=== PATIENT | male | born 1940 | race Caucasian/White ===

== ENCOUNTER 2021-02-02 10:36 | Emergency (ER) | payer MEDICARE | END 2021-02-04 12:50 | disposition left against medical advice (07) | LOC: ER 10:36 | DX: Z53.21 Procedure and treatment not carried out due to patient leaving prior to being seen by health care provider (principal) ==

== ENCOUNTER → 2021-02-03 | Outpatient (CLI) | payer MEDICARE | END | disposition home or self-care (01) | LOC: LAB 15:30 → LAB SHORT 15:30 | DX: L97.509 Non-pressure chronic ulcer of other part of unspecified foot with unspecified severity (principal) | CPT/HCPCS: 87070; 87075; 87077; 87186; 87205 ==

== ENCOUNTER → 2021-02-16 | Outpatient (CLI) | payer MEDICARE | END | disposition home or self-care (01) | LOC: LAB 11:40 → LAB SHORT 11:40 | DX: M86.9 Osteomyelitis, unspecified (principal) | CPT/HCPCS: 87070; 87075; 87205 ==

== ENCOUNTER → 2021-02-16 | Outpatient (CLI) | payer MEDICARE | END | disposition home or self-care (01) | LOC: LAB 13:22 → LAB SHORT 13:22 | DX: M86.172 Other acute osteomyelitis, left ankle and foot (principal); L03.032 Cellulitis of left toe; L98.499 Non-pressure chronic ulcer of skin of other sites with unspecified severity | CPT/HCPCS: 88305 ==

== ENCOUNTER → 2021-04-02 | Outpatient (CLI) | payer MEDICARE | END | disposition home or self-care (01) | LOC: LAB SHORT 13:02 | DX: Z48.89 Encounter for other specified surgical aftercare (principal); T81.31XD Disruption of external operation (surgical) wound, not elsewhere classified, subsequent encounter; E11.621 Type 2 diabetes mellitus with foot ulcer; L97.509 Non-pressure chronic ulcer of other part of unspecified foot with unspecified severity; R20.0 Anesthesia of skin | CPT/HCPCS: 87070; 87075; 87077; 87186; 87205 ==

== ENCOUNTER → 2021-04-24 | Outpatient (CLI) | payer MEDICARE | END | disposition home or self-care (01) | LOC: LAB SHORT 10:01 | DX: Z48.89 Encounter for other specified surgical aftercare (principal) | CPT/HCPCS: 87070; 87075; 87077; 87186 ==

== ENCOUNTER 2021-05-04 09:40 | Emergency (ER) | payer MEDICARE ==
[~2021-05-04] VITALS: Ht 193 cm; Wt 87.6 kg
[2021-05-04 10:29] LABS: BASOPHILS ABSOLUTE AUTO 0.11 K/mm3 (0.00-0.23); BASOPHILS PERCENT AUTO 1 % (0-2); EOSINOPHILS ABSOLUTE AUTO 0.11 K/mm3 (0.00-0.68); EOSINOPHILS PERCENT AUTO 1 % (0-6); Hematocrit 40.4 % (37.0-53.0); Hemoglobin 12.6 g/dL (13.5-17.5); IMMATURE GRAN ABSOLUTE AUTO 0.04 K/mm3 (0.00-0.10); IMMATURE GRAN PERCENT AUTO 0 % (0-1); LYMPHOCYTES PERCENT AUTO 10 % (21-46); MONOCYTES ABSOLUTE AUTO 1.08 K/mm3 (0.16-1.47); MONOCYTES PERCENT AUTO 10 % (4-13); Mean Corpuscular HGB 27.2 pg (26.0-34.0); Mean Corpuscular HGB Conc 31.2 g/dL (31.5-36.5); Mean Corpuscular Volume 87 fL (80-100); Mean Platelet Volume 10.5 fL (9.1-12.4); NEUTROPHILS ABSOLUTE AUTO 8.93 K/mm3 (1.96-9.15); NEUTROPHILS PERCENT AUTO 78 % (41-73); Platelet Count 308 K/mm3 (150-400); RDW Coefficient Variation 14.7 % (11.7-14.2); RDW Standard Deviation 47.3 fL (35.1-46.3); Red Blood Cell Count 4.64 M/mm3 (4.30-5.90); White Blood Cell Count 11.37 K/mm3 (4.00-11.30)
[2021-05-04 10:54] LABS: Alanine Aminotransfer (ALT/SGP 16 U/L (12-78); Albumin, Blood 2.7 g/dL (3.4-5.0); Albumin/Globulin Ratio 0.6 (0.8-1.8); Alk Phos 103 U/L (50-136); Anion Gap 3 mmol/L (6-16); Aspartate Aminotrans (AST/SGOT 23 U/L (12-37); Bilirubin, Total 0.6 mg/dL (0.1-1.0); Blood Urea Nitrogen 20 mg/dL (8-24); Bun/Creatinine Ratio 26.1 (12.0-20.0); CO2, Blood 30 mmol/L (21-32); Calcium, Blood 9.1 mg/dL (8.5-10.1); Chloride, Blood 105 mmol/L (98-108); Creatinine, Blood 0.77 mg/dL (0.60-1.20); Globulin, Blood 4.4 g/dL (2.2-4.0); Glomerular Filtration Rate >60 (60-); Glucose, Blood 129 mg/dL (70-99); Potassium, Blood 4.3 mmol/L (3.5-5.5); Sodium, Blood 138 mmol/L (136-145); Total Protein, Blood 7.1 g/dL (6.4-8.2)
[2021-05-04] MEDS ORDERED: CIPR250 PO (12:37)
[2021-05-04] MEDS ORDERED: OXYCODONE-ACET1 EAC2 PO (12:38)
[2021-05-04] MEDS ORDERED: VARENICLINE TART1 M1 PO (12:38)
[2021-05-04] MEDS ORDERED: ALENDRONATE SOD PO (12:39)
[2021-05-04] MEDS ORDERED: Ventolin/Prove6.7 GM INH (12:39)
[2021-05-04] MEDS ORDERED: FUROSEMIDE20 MG PO (12:40)
[2021-05-04] MEDS ORDERED: METOPROLOL SUCC25 MG PO (12:41)
[2021-05-04] MEDS ORDERED: Neurontin800 MG PO (12:41)
[2021-05-04] MEDS ORDERED: OMEP20ER PO (12:41)
[2021-05-04] MEDS ORDERED: Celexa20 MG PO (12:42)
[2021-05-04] MEDS ORDERED: Metformin HCl750 MG PO (12:42)
[2021-05-04] MEDS ORDERED: FINA5 PO (12:43)
== END 2021-05-04 15:50 | disposition home or self-care (01) ==
LOC: ER 09:40
PROVIDERS: Physician Assistant
DX: E11.69 Type 2 diabetes mellitus with other specified complication (principal); M86.9 Osteomyelitis, unspecified; I48.91 Unspecified atrial fibrillation
CPT/HCPCS: 36415; 73630; 80053; 85025; 96365; 96375; 99282-25; A9270; J0713; J3370; J7050

== ENCOUNTER → 2021-05-04 | Outpatient (CLI) | payer MEDICARE ==
[~2021-05-04] MED LIST: ALENDRONATE SOD PO; CIPR250 PO; Celexa20 MG PO; FINA5 PO; FUROSEMIDE20 MG PO; METOPROLOL SUCC25 MG PO; Metformin HCl750 MG PO; Neurontin800 MG PO; OMEP20ER PO; OXYCODONE-ACET1 EAC2 PO; VARENICLINE TART1 M1 PO; Ventolin/Prove6.7 GM INH
== END ==
LOC: LAB 09:50 → LAB SHORT 09:50
DX: Z48.817 Encounter for surgical aftercare following surgery on the skin and subcutaneous tissue (principal)
CPT/HCPCS: 88305

== ENCOUNTER 2021-05-05 02:00 | Day surgery (SDC) | payer MEDICARE ==
--- NOTE | 2021-05-05 15:45 | NUR ---
F/U CHEST X-RAY NEEDED: CHEST X-RAY WAS PERFORMED PER PROTOCOL FOR CONFIRMATION OF PICC PLACEMENT IN PT W/ AFIB. PER RADIOLOGIST THE PICC TIP PROJECTED OVER THE INF R ATRIUM. REPORT WAS RECEIVED FROM VINNIE HARO THAT THE RADIOLOGIST HAD READ THE CHEST XRAY AND TO PULL THE CATHETER BACK 3 CM. THERE WAS NO MENTION OF GETTING A REPEAT CHEST XRAY AT THAT TIME. THIS RN PULLED THE CATHETER BACK 3 CM FOR A TOTAL OF 6 CM EXPOSED. PT WAS THEN DC'D HOME. WHEN THE XRAY REPORT WAS AVAILABE, THIS RN NOTICED THAT THE RADIOLOGIST WROTE "SUBSEQUENT IMAGING TO VERIFY PLACEMENT". PT WAS CONTACTED, HE SAID HE WOULD RETURN TO THE HOSPITAL FOR A PREVIOUSLY SCHEDULED APPT, SO HE COULD GET THE X-RAY THEN. THE PT LATER CALLED THIS RN TO SAY THAT HIS FOOT WAS SORE AND THAT HE HAD CANCELLED HIS OTHER APPT SO HE WOULD NOT BE COMING BACK FOR THE X-RAY. PT WAS TOLD THAT IT WAS IMPORTANT TO GET THE XRAY, HE VERBALIZED UNDERSTANDING AND SAID HE WOULD RETURN TOMORROW AM FOR HIS INFUSION AND XRAY AT THAT TIME. THE PICC WAS NOT USED FOR INFUSION BECAUSE HE HAD AN IV WHICH WAS USED.
== END 2021-05-05 10:35 | disposition home or self-care (01) ==
LOC: ATC 02:00
DX: E11.69 Type 2 diabetes mellitus with other specified complication (principal); M86.8X7 Other osteomyelitis, ankle and foot; I10 Essential (primary) hypertension; Z79.899 Other long term (current) drug therapy
CPT/HCPCS: 36569; 71045; 96365; 96366; 96368; C1751; J1580; J3370; J7050

== ENCOUNTER 2021-05-06 02:18 | Day surgery (SDC) | payer MEDICARE ==
[2021-05-06 08:32] LABS: Creatinine, Blood 0.74 mg/dL (0.60-1.20); Glomerular Filtration Rate >60 (60-); Vancomycin, Trough 6.9 ug/mL (5.0-10.0)
[2021-05-06 10:12] LABS: Gentamicin, Trough 1.4 ug/mL (0.0-1.9)
[2021-05-15] MEDS ORDERED: METF500C PO (14:51)
== END 2021-05-06 12:02 | disposition home or self-care (01) ==
LOC: ATC 02:18
PROVIDERS: Internal Medicine
DX: E11.69 Type 2 diabetes mellitus with other specified complication (principal); M86.9 Osteomyelitis, unspecified; I48.91 Unspecified atrial fibrillation
CPT/HCPCS: 71045; 80170; 80202; 82565; 96365; 96366; J3370; J7050

== ENCOUNTER 2021-05-07 08:06 | Day surgery (SDC) | payer MEDICARE ==
[2021-05-07 10:05] LABS: Gentamicin, Trough 0.2 ug/mL (0.0-1.9)
== END 2021-05-07 11:13 | disposition home or self-care (01) ==
LOC: ATC 08:06
PROVIDERS: Internal Medicine
DX: E11.69 Type 2 diabetes mellitus with other specified complication (principal); M86.9 Osteomyelitis, unspecified; I48.91 Unspecified atrial fibrillation
CPT/HCPCS: 80170; 96365; 96366; 96367; J1580; J3370; J7050

== ENCOUNTER 2021-05-08 05:46 | Day surgery (SDC) | payer MEDICARE ==
[2021-05-15] MEDS ORDERED: METF500C PO (14:51)
== END 2021-05-08 12:14 | disposition home or self-care (01) ==
LOC: ATC 05:46
DX: E11.69 Type 2 diabetes mellitus with other specified complication (principal); M86.8X7 Other osteomyelitis, ankle and foot; Z79.899 Other long term (current) drug therapy; Z89.421 Acquired absence of other right toe(s)
CPT/HCPCS: 96365; 96366; J3370; J7050

== ENCOUNTER 2021-05-09 08:48 | Day surgery (SDC) | payer MEDICARE ==
[2021-05-09 09:21] LABS: Creatinine, Blood 0.75 mg/dL (0.60-1.20); Gentamicin, Trough 0.4 ug/mL (0.0-1.9); Vancomycin, Trough 14.3 ug/mL (5.0-10.0)
[2021-05-15] MEDS ORDERED: METF500C PO (14:51)
== END 2021-05-09 11:43 | disposition home or self-care (01) ==
LOC: ATC 08:48
PROVIDERS: Internal Medicine
DX: E11.69 Type 2 diabetes mellitus with other specified complication (principal); M86.9 Osteomyelitis, unspecified; I48.91 Unspecified atrial fibrillation
CPT/HCPCS: 80170; 80202; 82565; 96365; 96366; 96368; J1580; J3370; J7050

== ENCOUNTER 2021-05-10 09:20 | Day surgery (SDC) | payer MEDICARE ==
[2021-05-15] MEDS ORDERED: METF500C PO (14:51)
== END 2021-05-10 11:30 | disposition home or self-care (01) ==
LOC: ATC 09:20
DX: E11.69 Type 2 diabetes mellitus with other specified complication (principal); M86.9 Osteomyelitis, unspecified; I48.91 Unspecified atrial fibrillation
CPT/HCPCS: 96365; 96366; J3370; J7050

== ENCOUNTER 2021-05-11 04:31 | Day surgery (SDC) | payer MEDICARE ==
[2021-05-15] MEDS ORDERED: METF500C PO (14:51)
== END 2021-05-11 11:20 | disposition home or self-care (01) ==
LOC: ATC 04:31
DX: E11.69 Type 2 diabetes mellitus with other specified complication (principal); M86.8X7 Other osteomyelitis, ankle and foot; Z79.899 Other long term (current) drug therapy; Z89.421 Acquired absence of other right toe(s)
CPT/HCPCS: 96365; 96366; 96368; J1580; J3370; J7050

== ENCOUNTER 2021-05-12 01:10 | Day surgery (SDC) | payer MEDICARE ==
[2021-05-15] MEDS ORDERED: METF500C PO (14:51)
== END 2021-05-12 11:35 | disposition home or self-care (01) ==
LOC: ATC 01:10
DX: E11.69 Type 2 diabetes mellitus with other specified complication (principal); M86.8X7 Other osteomyelitis, ankle and foot; Z79.899 Other long term (current) drug therapy
CPT/HCPCS: 96365; 96366; J3370; J7050

== ENCOUNTER 2021-05-13 04:35 | Day surgery (SDC) | payer MEDICARE ==
[2021-05-13 08:48] LABS: Creatinine, Blood 0.83 mg/dL (0.60-1.20); Gentamicin, Trough 0.4 ug/mL (0.0-1.9); Glomerular Filtration Rate >60 (60-); Vancomycin, Trough 18.1 ug/mL (5.0-10.0)
[2021-05-15] MEDS ORDERED: METF500C PO (14:51)
== END 2021-05-13 11:22 | disposition home or self-care (01) ==
LOC: ATC 04:35
PROVIDERS: Family Medicine
DX: E11.69 Type 2 diabetes mellitus with other specified complication (principal); M86.9 Osteomyelitis, unspecified; Z79.84 Long term (current) use of oral hypoglycemic drugs; I48.91 Unspecified atrial fibrillation
CPT/HCPCS: 80170; 80202; 82565; 96365; 96366; 96368; J1580; J3370; J7050

== ENCOUNTER 2021-05-14 05:39 | Day surgery (SDC) | payer MEDICARE ==
[2021-05-15] MEDS ORDERED: METF500C PO (14:51)
== END 2021-05-14 09:56 | disposition home or self-care (01) ==
LOC: ATC 05:39
DX: E11.69 Type 2 diabetes mellitus with other specified complication (principal); M86.9 Osteomyelitis, unspecified; I48.91 Unspecified atrial fibrillation
CPT/HCPCS: 96365; 96366; J3370; J7050

== ENCOUNTER 2021-05-17 12:44 | Day surgery (SDC) | payer MEDICARE ==
[~2021-05-17 12:44] MED LIST changes: +METF500C PO
[2021-05-18] MEDS ORDERED: CLOP75 PO (16:02)
[2021-05-18] MEDS ORDERED: 1/2 NS 250ml250 ML (16:03)
== END 2021-05-17 14:52 | disposition home or self-care (01) ==
LOC: ATC 12:44
DX: E11.69 Type 2 diabetes mellitus with other specified complication (principal); E11.622 Type 2 diabetes mellitus with other skin ulcer; Z01.810 Encounter for preprocedural cardiovascular examination; I83.229 Varicose veins of left lower extremity with both ulcer of unspecified site and inflammation; I63.219 Cerebral infarction due to unspecified occlusion or stenosis of unspecified vertebral artery; L97.919 Non-pressure chronic ulcer of unspecified part of right lower leg with unspecified severity; L97.929 Non-pressure chronic ulcer of unspecified part of left lower leg with unspecified severity; I70.213 Atherosclerosis of native arteries of extremities with intermittent claudication, bilateral legs; M86.9 Osteomyelitis, unspecified
CPT/HCPCS: 96365; 96366; 96368; J1580; J3370; J7050

== ENCOUNTER 2021-05-18 10:08 | Day surgery (SDC) | payer MEDICARE ==
[~2021-05-18] VITALS: Ht 193 cm; Wt 89.8 kg
--- NOTE | 2021-05-18 11:54 | NUR ---
1030 PATIENT BROUGHT BACK TO THE PRE OP/RECOVERY ROOM TO PREP FOR PROCEDURE. ALLOWED TO MAINTAIN IN CLOTHES TO STAY WARM. COMPUTER ADMISSION CRITERIA PERFROMED. WILL START PIV CLOSER TO THE BEGINING OF HIS PROCEDURE START TIME.
--- NOTE | 2021-05-18 15:29 | NUR ---
PATIENT RETURNED FROM THE [facility] POST PROCEDURE AND DR. SAUER AT THE BEDSIDE. PLACED ON THE MONITOR. RIGHT GROIN ANTEGRADE STICK. DR. REY AT THE BEDSIDE AND SPOKE WITH THE PATIENT AT LENGTH. NEW ORDERS NOTED.
[2021-05-18] MEDS ORDERED: CLOP75 PO (16:02)
[2021-05-18] MEDS ORDERED: 1/2 NS 250ml250 ML (16:03)
--- NOTE | 2021-05-18 16:26 | NUR ---
GROIN SITE UNCHANGED. DINNER TRAY COMPLETE.
--- NOTE | 2021-05-18 16:36 | NUR ---
PATIENT UP AND PIV REMOVED. VOIDED 300 UOP NOTED. DRESSED AND REVEIEWED DISCAHRGE INSTRUCTIONS WITH THE PATIENT. SIGNATURES GATHERED AND COPIES GIVEN TO THE PATIENT. FOLLOW APPOINTMENT MADE AND WILL HAVE LABS AND ULTRASOUND SCHEDULED PRIOR TO FOLLOW UP.
== END 2021-05-18 17:00 | disposition home or self-care (01) ==
LOC: MHTC 10:08
DX: E11.51 Type 2 diabetes mellitus with diabetic peripheral angiopathy without gangrene (principal); I70.212 Atherosclerosis of native arteries of extremities with intermittent claudication, left leg; L97.929 Non-pressure chronic ulcer of unspecified part of left lower leg with unspecified severity; L97.919 Non-pressure chronic ulcer of unspecified part of right lower leg with unspecified severity; I48.91 Unspecified atrial fibrillation; I50.9 Heart failure, unspecified; J44.9 Chronic obstructive pulmonary disease, unspecified; K21.9 Gastro-esophageal reflux disease without esophagitis
CPT/HCPCS: 76937; 99152; 99153; A9270; C1725; C1760; C1769; C1887; C1894; J1580; J1644; J2250; J3010; J3370; J7030; J7050; Q9967

== ENCOUNTER 2021-05-19 03:16 | Day surgery (SDC) | payer MEDICARE ==
[~2021-05-19 03:16] MED LIST changes: +1/2 NS 250ml250 ML; +CLOP75 PO
[2021-05-19 08:43] LABS: Creatinine, Blood 0.95 mg/dL (0.60-1.20); Gentamicin, Trough 3.1 ug/mL (0.0-1.9); Vancomycin, Trough 15.7 ug/mL (5.0-10.0)
== END 2021-05-19 10:43 | disposition home or self-care (01) ==
LOC: ATC 03:16
PROVIDERS: Internal Medicine
DX: M86.9 Osteomyelitis, unspecified (principal)
CPT/HCPCS: 80170; 80202; 82565; 96365; 96366; J3370; J7050

== ENCOUNTER 2021-05-21 03:38 | Day surgery (SDC) | payer MEDICARE | END 2021-05-21 09:50 | disposition home or self-care (01) | LOC: ATC 03:38 | DX: E11.69 Type 2 diabetes mellitus with other specified complication (principal); M86.9 Osteomyelitis, unspecified; I48.91 Unspecified atrial fibrillation | CPT/HCPCS: 96365; 96366; J3370; J7050 ==

== ENCOUNTER 2021-05-22 03:06 | Day surgery (SDC) | payer MEDICARE | END 2021-05-22 08:48 | disposition home or self-care (01) | LOC: ATC 03:06 | DX: E11.69 Type 2 diabetes mellitus with other specified complication (principal); M86.9 Osteomyelitis, unspecified | CPT/HCPCS: 96365; 96366; J3370; J7050 ==

== ENCOUNTER 2021-05-23 07:51 | Day surgery (SDC) | payer MEDICARE ==
[2021-05-23 08:35] LABS: Creatinine, Blood 1.16 mg/dL (0.60-1.20); Gentamicin, Trough 0.3 ug/mL (0.0-1.9); Glomerular Filtration Rate >60 (60-); Vancomycin, Trough 20.5 ug/mL (5.0-10.0)
== END 2021-05-23 11:15 | disposition home or self-care (01) ==
LOC: ATC 07:51
PROVIDERS: Internal Medicine
DX: E11.69 Type 2 diabetes mellitus with other specified complication (principal); M86.9 Osteomyelitis, unspecified
CPT/HCPCS: 80170; 80202; 82565; 96365; 96366; 96368; J1580; J3370; J7050

== ENCOUNTER 2021-05-25 03:32 | Day surgery (SDC) | payer MEDICARE ==
[2021-05-25 08:40] LABS: Creatinine, Blood 1.45 mg/dL (0.60-1.20); Gentamicin, Random 1.6 ug/Ml; Vancomycin, Random 14.8 ug/mL
== END 2021-05-25 11:10 | disposition home or self-care (01) ==
LOC: ATC 03:32
PROVIDERS: Internal Medicine
DX: E11.69 Type 2 diabetes mellitus with other specified complication (principal); M86.9 Osteomyelitis, unspecified; I48.91 Unspecified atrial fibrillation
CPT/HCPCS: 80170; 80202; 82565; J3370; J7050

== ENCOUNTER 2021-05-25 03:35 | Day surgery (SDC) | payer MEDICARE | END 2021-05-25 23:05 | disposition home or self-care (01) | LOC: WOUND 03:35 | DX: E11.621 Type 2 diabetes mellitus with foot ulcer (principal); L97.516 Non-pressure chronic ulcer of other part of right foot with bone involvement without evidence of necrosis; E11.622 Type 2 diabetes mellitus with other skin ulcer; L97.822 Non-pressure chronic ulcer of other part of left lower leg with fat layer exposed; E11.42 Type 2 diabetes mellitus with diabetic polyneuropathy; E11.59 Type 2 diabetes mellitus with other circulatory complications; E11.51 Type 2 diabetes mellitus with diabetic peripheral angiopathy without gangrene; I87.2 Venous insufficiency (chronic) (peripheral) | CPT/HCPCS: G0463 ==

== ENCOUNTER → 2021-05-26 | Outpatient (CLI) | payer MEDICARE | LOC: LAB SHORT 12:00 | DX: Z48.89 Encounter for other specified surgical aftercare (principal); L97.509 Non-pressure chronic ulcer of other part of unspecified foot with unspecified severity; T81.31XD Disruption of external operation (surgical) wound, not elsewhere classified, subsequent encounter; R20.0 Anesthesia of skin; E11.42 Type 2 diabetes mellitus with diabetic polyneuropathy | CPT/HCPCS: 87070; 87075; 87077; 87186; 87205 ==

== ENCOUNTER 2021-07-14 11:31 | Emergency (ER) | payer MEDICARE ==
[~2021-07-14] VITALS: Ht 193 cm; Wt 85.3 kg
== END 2021-07-14 14:24 | disposition home or self-care (01) ==
LOC: ER 11:31
DX: S01.81XA Laceration without foreign body of other part of head, initial encounter (principal); S51.811A Laceration without foreign body of right forearm, initial encounter; S16.1XXA Strain of muscle, fascia and tendon at neck level, initial encounter; S40.012A Contusion of left shoulder, initial encounter; S50.12XA Contusion of left forearm, initial encounter; E11.9 Type 2 diabetes mellitus without complications; I48.91 Unspecified atrial fibrillation; F17.210 Nicotine dependence, cigarettes, uncomplicated; W19.XXXA Unspecified fall, initial encounter
CPT/HCPCS: 70450; 72125; 73030; 99284-25; L0160

== ENCOUNTER → 2021-08-03 | Outpatient (CLI) | payer MEDICARE | END | disposition home or self-care (01) | LOC: LAB SHORT 08:54 | DX: M86.171 Other acute osteomyelitis, right ankle and foot (principal) | CPT/HCPCS: 88305; 88311 ==

== ENCOUNTER → 2021-08-04 | Outpatient (CLI) | payer MEDICARE | LOC: LAB 16:00 → LAB SHORT 16:00 | DX: L02.611 Cutaneous abscess of right foot (principal) | CPT/HCPCS: 87070; 87075; 87077; 87147; 87186; 87205 ==

== ENCOUNTER 2021-10-05 14:48 | Emergency (ER) | payer MEDICARE ==
[~2021-10-05] VITALS: Ht 193 cm; Wt 87.1 kg
[~2021-10-05 14:48] MED LIST changes: -ALBU8HFA2 INH; -ALMACONE SUSPE355 ML PO; -ATOR40TA PO; -BISA10S; -CITA20 PO; -Cyclobenzaprine5 MG; -GABA800 PO; -GLIP2.5ER PO; -LASIX40 MG PO; -LEVO750 PO; -MAGNESIUM OXID500 MG PO; -METO25ER PO; -MIRTAZAPINE7.5 M1 PO; -Milk Of Ma400 MG/5 M PO; -PIPERACIL-TA3.375 G1 IV; -Percocet 10-321 EACH; -SENNA LAXATIVE8.6 MG
[2021-10-05 16:26] LABS: Source, Urine Clean Catch
[2021-10-05 16:47] LABS: BASOPHILS ABSOLUTE AUTO 0.11 K/mm3 (0.00-0.23); BASOPHILS PERCENT AUTO 1 % (0-2); EOSINOPHILS ABSOLUTE AUTO 0.58 K/mm3 (0.00-0.68); EOSINOPHILS PERCENT AUTO 7 % (0-6); Hematocrit 37.7 % (37.0-53.0); IMMATURE GRAN ABSOLUTE AUTO 0.03 K/mm3 (0.00-0.10); IMMATURE GRAN PERCENT AUTO 0 % (0-1); LYMPHOCYTES ABSOLUTE AUTO 1.05 K/mm3 (0.84-5.20); LYMPHOCYTES PERCENT AUTO 12 % (21-46); MONOCYTES ABSOLUTE AUTO 0.79 K/mm3 (0.16-1.47); MONOCYTES PERCENT AUTO 9 % (4-13); Mean Corpuscular HGB 26.6 pg (26.0-34.0); Mean Corpuscular HGB Conc 29.2 g/dL (31.5-36.5); Mean Corpuscular Volume 91 fL (80-100); Mean Platelet Volume 11.1 fL (9.1-12.4); NEUTROPHILS ABSOLUTE AUTO 6.01 K/mm3 (1.96-9.15); NEUTROPHILS PERCENT AUTO 70 % (41-73); Platelet Count 195 K/mm3 (150-400); RDW Coefficient Variation 17.7 % (11.7-14.2); RDW Standard Deviation 59.5 fL (35.1-46.3); Red Blood Cell Count 4.13 M/mm3 (4.30-5.90); White Blood Cell Count 8.57 K/mm3 (4.00-11.30)
[2021-10-05 17:01] LABS: Albumin, Blood 3.5 g/dL (3.4-5.0); Albumin/Globulin Ratio 0.7 (0.8-1.8); Bilirubin, Total 0.4 mg/dL (0.1-1.0); Bun/Creatinine Ratio 25.9 (12.0-20.0); Calcium, Blood 9.1 mg/dL (8.5-10.1); Creatinine, Blood 1.47 mg/dL (0.60-1.20); Globulin, Blood 4.9 g/dL (2.2-4.0); Potassium, Blood 4.5 mmol/L (3.5-5.5); Total Protein, Blood 8.4 g/dL (6.4-8.2)
[2021-10-05 17:01] LABS: Appearance, Urine Clear (Clear); Bilirubin, Urine Neg (Neg); Blood, Urine Neg (Neg); Color, Urine Yellow (P-Yellow); Glucose Qualitative, Urine Neg (Neg); Ketones, Urine Neg (Neg); Leukocyte Esterase, Urine 1+ (Neg); Nitrite, Urine Neg (Neg); Protein, Urine Neg (Neg); Urobilinogen, Urine NORM (Normal)
[2021-10-05] MEDS ORDERED: CITA20 PO (17:14)
[2021-10-05] MEDS ORDERED: ATOR40TA PO (17:14)
[2021-10-05] MEDS ORDERED: FINA5 PO (17:15)
[2021-10-05] MEDS ORDERED: CLOP75 PO (17:15)
[2021-10-05] MEDS ORDERED: GLIP2.5ER PO (17:16)
[2021-10-05] MEDS ORDERED: LEVO750 PO (17:17)
[2021-10-05] MEDS ORDERED: LASIX40 MG PO (17:17)
[2021-10-05] MEDS ORDERED: MIRTAZAPINE7.5 M1 PO (17:18)
[2021-10-05] MEDS ORDERED: METO25ER PO (17:18)
[2021-10-05] MEDS ORDERED: OMEP20ER PO (17:19)
[2021-10-05] MEDS ORDERED: MAGNESIUM OXID500 MG PO (17:20)
[2021-10-05] MEDS ORDERED: Cyclobenzaprine5 MG (17:21)
[2021-10-05] MEDS ORDERED: GABA800 PO (17:22)
[2021-10-05] MEDS ORDERED: BISA10S (17:24)
[2021-10-05] MEDS ORDERED: PIPERACIL-TA3.375 G1 IV (17:24)
[2021-10-05] MEDS ORDERED: SENNA LAXATIVE8.6 MG (17:26)
[2021-10-05] MEDS ORDERED: Percocet 10-321 EACH (17:28)
[2021-10-05] MEDS ORDERED: ALBU8HFA2 INH (17:29)
[2021-10-05] MEDS ORDERED: Milk Of Ma400 MG/5 M PO (17:30)
[2021-10-05] MEDS ORDERED: ALMACONE SUSPE355 ML PO (17:31)
[2021-10-05 17:39] LABS: Bacteria Not Seen /hpf; Red Blood Cells, Urine 0-2 /hpf (0-2); Squamous Epithelial Cells Rare /hpf (Few); Transitional Epithelial Cells Few /hpf (0-Rare)
== END 2021-10-05 19:14 | disposition home or self-care (01) ==
LOC: ER 14:48
PROVIDERS: Physician Assistant
DX: N39.0 Urinary tract infection, site not specified (principal); J18.9 Pneumonia, unspecified organism; Z87.891 Personal history of nicotine dependence; I50.9 Heart failure, unspecified; I48.91 Unspecified atrial fibrillation; E11.9 Type 2 diabetes mellitus without complications; Z79.899 Other long term (current) drug therapy
CPT/HCPCS: 36415; 71045; 80053; 81001; 83880; 85025; 96374; 99283-25; J2543; J7030

== ENCOUNTER → 2021-10-05 | Outpatient (CLI) | payer MEDICARE ==
[~2021-10-05] MED LIST changes: +ALBU8HFA2 INH; +ALMACONE SUSPE355 ML PO; +ATOR40TA PO; +BISA10S; +CITA20 PO; +Cyclobenzaprine5 MG; +GABA800 PO; +GLIP2.5ER PO; +LASIX40 MG PO; +LEVO750 PO; +MAGNESIUM OXID500 MG PO; +METO25ER PO; +MIRTAZAPINE7.5 M1 PO; +Milk Of Ma400 MG/5 M PO; +PIPERACIL-TA3.375 G1 IV; +Percocet 10-321 EACH; +SENNA LAXATIVE8.6 MG
== END | disposition home or self-care (01) ==
LOC: LAB SHORT 11:36 → LAB 11:36
DX: L02.611 Cutaneous abscess of right foot (principal)
CPT/HCPCS: 87070; 87075; 87077; 87147; 87186; 87205

== ENCOUNTER → 2021-10-26 | Outpatient (CLI) | payer MEDICARE, OTHER ==
[~2021-10-26] MED LIST changes: +ALBU8HFA2 INH; +ALMACONE SUSPE355 ML PO; +ATOR40TA PO; +BISA10S; +CITA20 PO; +Cyclobenzaprine5 MG; +GABA800 PO; +GLIP2.5ER PO; +LASIX40 MG PO; +LEVO750 PO; +MAGNESIUM OXID500 MG PO; +METO25ER PO; +MIRTAZAPINE7.5 M1 PO; +Milk Of Ma400 MG/5 M PO; +PIPERACIL-TA3.375 G1 IV; +POTCHL20ER PO; +Percocet 10-321 EACH; +SENNA LAXATIVE8.6 MG
[2021-10-26 16:31] LABS: Source, Urine Clean Catch
[2021-10-26 17:50] LABS: Appearance, Urine Clear (Clear); Bilirubin, Urine Neg (Neg); Blood, Urine Neg (Neg); Glucose Qualitative, Urine Neg (Neg); Ketones, Urine Neg (Neg); Leukocyte Esterase, Urine Neg (Neg); Nitrite, Urine Neg (Neg); Protein, Urine Neg (Neg); Urobilinogen, Urine NORM (Normal)
[2021-10-26 18:16] LABS: Color, Urine Pale Yellow (P-Yellow)
== END | disposition home or self-care (01) ==
LOC: EDSTATUS 14:21 → LAB UVN 16:30
PROVIDERS: Internal Medicine
DX: N39.0 Urinary tract infection, site not specified (principal)
CPT/HCPCS: 81003; 87077; 87086; 87186

== ENCOUNTER 2021-12-20 16:33 | Emergency (ER) | payer MEDICARE, OTHER ==
[~2021-12-20] VITALS: Ht 193 cm; Wt 90.7 kg
[~2021-12-20 16:33] MED LIST changes: -POTCHL20ER PO
[2021-12-20 17:31] LABS: BASOPHILS ABSOLUTE AUTO 0.05 K/mm3 (0.00-0.23); BASOPHILS PERCENT AUTO 1 % (0-2); EOSINOPHILS ABSOLUTE AUTO 0.24 K/mm3 (0.00-0.68); EOSINOPHILS PERCENT AUTO 4 % (0-6); Hematocrit 34.4 % (37.0-53.0); Hemoglobin 10.9 g/dL (13.5-17.5); IMMATURE GRAN ABSOLUTE AUTO 0.02 K/mm3 (0.00-0.10); IMMATURE GRAN PERCENT AUTO 0 % (0-1); LYMPHOCYTES ABSOLUTE AUTO 0.91 K/mm3 (0.84-5.20); LYMPHOCYTES PERCENT AUTO 15 % (21-46); MONOCYTES ABSOLUTE AUTO 0.54 K/mm3 (0.16-1.47); MONOCYTES PERCENT AUTO 9 % (4-13); Mean Corpuscular HGB 25.1 pg (26.0-34.0); Mean Corpuscular HGB Conc 31.7 g/dL (31.5-36.5); Mean Corpuscular Volume 79 fL (80-100); Mean Platelet Volume 10.9 fL (9.1-12.4); NEUTROPHILS PERCENT AUTO 71 % (41-73); Platelet Count 173 K/mm3 (150-400); RDW Coefficient Variation 15.7 % (11.7-14.2); RDW Standard Deviation 45.1 fL (35.1-46.3); Red Blood Cell Count 4.35 M/mm3 (4.30-5.90); White Blood Cell Count 5.96 K/mm3 (4.00-11.30)
[2021-12-20 17:47] LABS: Albumin, Blood 3.5 g/dL (3.4-5.0); Albumin/Globulin Ratio 0.8 (0.8-1.8); Bilirubin, Total 0.5 mg/dL (0.1-1.0); Bun/Creatinine Ratio 20.4 (12.0-20.0); Calcium, Blood 9.1 mg/dL (8.5-10.1); Creatinine, Blood 1.37 mg/dL (0.60-1.20); Globulin, Blood 4.4 g/dL (2.2-4.0); Potassium, Blood 4.1 mmol/L (3.5-5.5); Total Protein, Blood 7.9 g/dL (6.4-8.2)
[2021-12-20] MEDS ORDERED: POTCHL20ER PO (17:51)
== END 2021-12-20 20:52 | disposition home or self-care (01) ==
LOC: ER 16:33
PROVIDERS: Physician Assistant
DX: I50.9 Heart failure, unspecified (principal); J44.9 Chronic obstructive pulmonary disease, unspecified; E11.40 Type 2 diabetes mellitus with diabetic neuropathy, unspecified; Z79.899 Other long term (current) drug therapy; Z79.02 Long term (current) use of antithrombotics/antiplatelets; Z79.84 Long term (current) use of oral hypoglycemic drugs
CPT/HCPCS: 36415; 71045; 80053; 83880; 84484; 85025; 93971; J1940

== ENCOUNTER → 2022-03-29 | Outpatient (CLI) | payer OTHER ==
[~2022-03-29] MED LIST changes: +Bactrim Ds Tab1 EACH PO; +FLUT1DIS2 INH; +LIDOCAINE1 EACH TOP; +NEURONTIN300 MG PO; +NICO21TP TOP; +PANT20 PO; +POTCHL20ER PO; -Percocet 10-321 EACH; +Percocet 10-321 EACH PO; -SENNA LAXATIVE8.6 MG; +SENNA LAXATIVE8.6 MG PO; +TORSE20 PO
== END ==
LOC: LAB 17:35 → LAB SHORT 17:35
DX: M86.8X7 Other osteomyelitis, ankle and foot (principal)
CPT/HCPCS: 87070; 87075; 87205; 88305; 88311

== ENCOUNTER 2022-04-12 01:55 | Day surgery (SDC) | payer OTHER ==
[~2022-04-12 01:55] MED LIST changes: -FLUT1DIS2 INH; -LIDOCAINE1 EACH TOP; -NEURONTIN300 MG PO; -NICO21TP TOP; -PANT20 PO; -TORSE20 PO
== END 2022-04-12 23:24 | disposition home or self-care (01) ==
LOC: WOUND 01:55
DX: L89.323 Pressure ulcer of left buttock, stage 3 (principal); Z99.3 Dependence on wheelchair
CPT/HCPCS: G0463

== ENCOUNTER 2022-04-13 10:43 | Observation (INO) | payer OTHER ==
[~2022-04-13] VITALS: Ht 193 cm; Wt 93.7 kg
[2022-04-13 12:32] LABS: Influenza A, PCR NEGATIVE (NEGATIVE); Influenza B, PCR NEGATIVE (NEGATIVE); Resp Syncytial Virus, PCR NEGATIVE (NEGATIVE); SARS-Cov-2 (COVID-19) PCR, MMC NEGATIVE (NEGATIVE)
[2022-04-13 12:38] LABS: Albumin, Blood 3.2 g/dL (3.4-5.0); Albumin/Globulin Ratio 0.8 (0.8-1.8); Bilirubin, Total 1.2 mg/dL (0.1-1.0); Bun/Creatinine Ratio 31.6 (12.0-20.0); Calcium, Blood 9.2 mg/dL (8.5-10.1); Creatinine, Blood 2.09 mg/dL (0.60-1.20); Potassium, Blood 4.5 mmol/L (3.5-5.5); Thyroid Stimulating Hormone 5.88 uIU/mL (0.360-4.800); Total Protein, Blood 7.2 g/dL (6.4-8.2)
[2022-04-13 12:40] LABS: BASOPHILS ABSOLUTE AUTO 0.05 K/mm3 (0.00-0.23); BASOPHILS PERCENT AUTO 1 % (0-2); EOSINOPHILS ABSOLUTE AUTO 0.07 K/mm3 (0.00-0.68); EOSINOPHILS PERCENT AUTO 1 % (0-6); Hematocrit 36.2 % (37.0-53.0); IMMATURE GRAN ABSOLUTE AUTO 0.02 K/mm3 (0.00-0.10); IMMATURE GRAN PERCENT AUTO 0 % (0-1); LYMPHOCYTES ABSOLUTE AUTO 0.82 K/mm3 (0.84-5.20); LYMPHOCYTES PERCENT AUTO 10 % (21-46); MONOCYTES ABSOLUTE AUTO 0.85 K/mm3 (0.16-1.47); MONOCYTES PERCENT AUTO 11 % (4-13); Mean Corpuscular HGB 23.4 pg (26.0-34.0); Mean Corpuscular HGB Conc 30.4 g/dL (31.5-36.5); Mean Corpuscular Volume 77 fL (80-100); Mean Platelet Volume 11.5 fL (9.1-12.4); NEUTROPHILS ABSOLUTE AUTO 6.14 K/mm3 (1.96-9.15); NEUTROPHILS PERCENT AUTO 77 % (41-73); NRBC ABSOLUTE 0.02 K/mm3 (0.00-0.02); NRBC Auto 0.3 /100 WBC (0.0-0.2); Platelet Count 213 K/mm3 (150-400); RDW Coefficient Variation 18.4 % (11.7-14.2); RDW Standard Deviation 50.5 fL (35.1-46.3); White Blood Cell Count 7.95 K/mm3 (4.00-11.30)
[2022-04-13 17:50] LABS: Source, Urine Clean Catch
[2022-04-13 17:52] LABS: Appearance, Urine Clear (Clear); Bilirubin, Urine Neg (Neg); Blood, Urine 1+ (Neg); Color, Urine Yellow (P-Yellow); Glucose Qualitative, Urine Neg (Neg); Ketones, Urine Neg (Neg); Leukocyte Esterase, Urine 3+ (Neg); Nitrite, Urine Neg (Neg); Protein, Urine 1+ (Neg); Specific Gravity, Urine 1.015 (1.003-1.022); Urobilinogen, Urine NORM (Normal)
[2022-04-13 18:15] LABS: Red Blood Cells, Urine 0-2 /hpf (0-2)
[2022-04-13 18:16] LABS: Bacteria Mod /hpf; Hyaline Casts 0-2 /lpf (0-2); Squamous Epithelial Cells Few /hpf (Few)
--- NOTE | 2022-04-13 19:08 | NUR ---
PT ARRIVED TO ROOM 305 VIA GURNEY AND TRANSFERRED TO BED. INCONTINENT AND ATTEMPTED TO HAVE A BM WITH NO RESULT. EATING SUPPER. DOES GET DROWSY AND NEEDS A PROMPT TO ANSWER QUESTIONS. REPORT GIVEN TO ONCOMING SHIFT.
--- NOTE | 2022-04-14 04:50 | NUR ---
BRAND PROTECTION MANAGER SUMMARY: A&Ox4. PLEASANT AND COOPERATIVE WITH CARE. VSS. 2-PERSON MAX ASSIST; UNABLE TO STAND D/T WEAKNESS. LARGE BM LAST NIGHT. SEVERAL WOUNDS DOCUMENTED; PICTURES IN CHART. MEDICATION LIST NEEDS TO BE RECONCILIATED; LEFT VM WITH [facility] REQUESTING MED LIST BE FAXED TO US. PT REPORTS TAKING PERCOCET 5/235 Q4h PRN. 2-3+ PITTING LLE & RUE. BILAT THIGHS, SCROTUM AND LOWER ABD PARTICULARLY EDEMATOUS. WILL REPORT TO ONCOMING RN.
[2022-04-14 05:14] LABS: Bun/Creatinine Ratio 32.6 (12.0-20.0); Calcium, Blood 9.1 mg/dL (8.5-10.1); Creatinine, Blood 1.87 mg/dL (0.60-1.20); Magnesium, Blood 2.5 mg/dL (1.6-2.4)
[2022-04-14 07:38] LABS: Free Thyroxine 1.28 ng/dL (0.70-1.60); Triiodothyronine, Free 1.53 pg/mL (2.18-3.98)
[2022-04-14] MEDS ORDERED: NEURONTIN300 MG PO (10:41)
[2022-04-14] MEDS ORDERED: PANT20 PO (10:41)
[2022-04-14] MEDS ORDERED: LIDOCAINE1 EACH TOP (10:43)
[2022-04-14] MEDS ORDERED: FLUT1DIS2 INH (10:43)
--- NOTE | 2022-04-14 11:03 | NUR ---
Echocardiogram completed.
--- NOTE | 2022-04-14 16:57 | NUR ---
SHIFT SUMMARY PT SITTING UP ON SIDE OF BED MOST OF THE DAY. HAS GOTTEN EXTREMELY ANXIOUS THIS AFTERNOON AND SAYS HE NEEDS TO GO HOME RIGHT NOW DUE TO FEELING ANTSY. OBTAINED NICOTINE AND VISTARIL ORDERS AND PT WILLING TO TRY THEM. EXPLAINED TO PT HE CAN GO ANYTIME BUT HE NEEDS TO FIND A RIDE AND SOMEONE WHO IS WILLING TO TRY AND GET HIM IN A CAR DUE TO HIS EXTREME WEAKNESS.
--- NOTE | 2022-04-14 17:03 | NUR ---
PT CARE WAS TAKEN OVER BY THIS COMPUTER LABORATORY TECHNICIAN AT [id number]. REPORT GIVEN BY LAZARO REYES. PT HAS CALL LIGHT WITHIN REACH WILL. NO DISTRESS NOTED. WILL CONTINUE TO MONITOR.
[2022-04-15 05:03] LABS: BASOPHILS ABSOLUTE AUTO 0.05 K/mm3 (0.00-0.23); BASOPHILS PERCENT AUTO 1 % (0-2); EOSINOPHILS ABSOLUTE AUTO 0.25 K/mm3 (0.00-0.68); EOSINOPHILS PERCENT AUTO 4 % (0-6); Hemoglobin 11.2 g/dL (13.5-17.5); IMMATURE GRAN ABSOLUTE AUTO 0.02 K/mm3 (0.00-0.10); IMMATURE GRAN PERCENT AUTO 0 % (0-1); LYMPHOCYTES ABSOLUTE AUTO 1.12 K/mm3 (0.84-5.20); LYMPHOCYTES PERCENT AUTO 18 % (21-46); MONOCYTES PERCENT AUTO 11 % (4-13); Mean Corpuscular HGB 23.3 pg (26.0-34.0); Mean Corpuscular HGB Conc 30.3 g/dL (31.5-36.5); Mean Corpuscular Volume 77 fL (80-100); Mean Platelet Volume 11.5 fL (9.1-12.4); NEUTROPHILS ABSOLUTE AUTO 4.12 K/mm3 (1.96-9.15); NEUTROPHILS PERCENT AUTO 66 % (41-73); NRBC ABSOLUTE 0.02 K/mm3 (0.00-0.02); NRBC Auto 0.3 /100 WBC (0.0-0.2); Platelet Count 192 K/mm3 (150-400); RDW Coefficient Variation 18.5 % (11.7-14.2); RDW Standard Deviation 50.7 fL (35.1-46.3); Red Blood Cell Count 4.81 M/mm3 (4.30-5.90); White Blood Cell Count 6.26 K/mm3 (4.00-11.30)
[2022-04-15 05:24] LABS: Bun/Creatinine Ratio 32.4 (12.0-20.0); Calcium, Blood 8.6 mg/dL (8.5-10.1); Creatinine, Blood 1.76 mg/dL (0.60-1.20); Magnesium, Blood 2.5 mg/dL (1.6-2.4); Phosphorus, Blood 3.2 mg/dL (2.5-4.9); Potassium, Blood 3.7 mmol/L (3.5-5.5)
--- NOTE | 2022-04-15 06:42 | NUR ---
BOAT CANVAS INSTALLER SUMMARY: A&Ox4. PLEASANT AND COOPERATIVE WITH CARE. VSS. CALLS APPROPRIATELY. USING BEDSIDE URINAL. MEDICATED x2 CHRONIC BACK PAIN. TELE A-FIB @83bpm. ECHO DONE YESTERDAY SHOWS EF 20-25%. NO C/O SOB OR CP. WILL REPORT TO ONCOMING RN.
[2022-04-15] MEDS ORDERED: TORSE20 PO (13:08)
[2022-04-15] MEDS ORDERED: NICO21TP TOP (13:09)
[2022-04-15 15:26] LABS: Influenza A, PCR NEGATIVE (NEGATIVE); Influenza B, PCR NEGATIVE (NEGATIVE); Resp Syncytial Virus, PCR NEGATIVE (NEGATIVE); SARS-Cov-2 (COVID-19) PCR, MMC NEGATIVE (NEGATIVE)
--- NOTE | 2022-04-15 18:38 | NUR ---
REPORT CALLED TO TOMMY AT [facility]. PICKED UP BY W/C AND TAKEN TO [facility] AT 1700. HAD A LARGE BM JUST PRIOR TO LEAVING. 2 PERSON MAX ASSIST WITH GAIT BELT AND PT ASSIST WITH TRANSFERS. UNABLE TO STAND UP FULLY BUT ABLE TO MOVE WITH HIS ARMS.
== END 2022-04-15 17:07 ==
LOC: ER 10:43 → MEDS 10:44
PROVIDERS: Emergency Medicine; Family Medicine; Nurse Practitioner Acute Care; Student in an Organized Health Care Education/Training Program; ADMIT Internal Medicine
DX: I50.23 Acute on chronic systolic (congestive) heart failure (principal); J44.9 Chronic obstructive pulmonary disease, unspecified; I48.91 Unspecified atrial fibrillation; Z89.511 Acquired absence of right leg below knee; N18.30 Chronic kidney disease, stage 3 unspecified; K21.9 Gastro-esophageal reflux disease without esophagitis; N40.0 Benign prostatic hyperplasia without lower urinary tract symptoms; Z66 Do not resuscitate; F17.210 Nicotine dependence, cigarettes, uncomplicated; Z79.02 Long term (current) use of antithrombotics/antiplatelets; E11.40 Type 2 diabetes mellitus with diabetic neuropathy, unspecified; E11.51 Type 2 diabetes mellitus with diabetic peripheral angiopathy without gangrene; L89.329 Pressure ulcer of left buttock, unspecified stage; N39.0 Urinary tract infection, site not specified; Z20.822 Contact with and (suspected) exposure to COVID-19
CPT/HCPCS: 0241U; 36415; 71045; 73110; 80048; 80053; 81001; 82947; 83605; 83735; 83880; 84100; 84439; 84443; 84481; 84484; 85025; 87040; 87086; 93005; 93010; 93306; 94640; 94664; 94760; 96361; 96372; 96374; 96375; 96376; 97110; 97162; 99285-25; A9270; G0378; J0696; J1644; J1940; J7030; Q0177

== ENCOUNTER 2022-04-26 02:42 | Day surgery (SDC) | payer OTHER ==
[~2022-04-26 02:42] MED LIST changes: +FLUT1DIS2 INH; +LIDOCAINE1 EACH TOP; +NEURONTIN300 MG PO; +NICO21TP TOP; +PANT20 PO; +TORSE20 PO
== END 2022-04-26 23:09 | disposition home or self-care (01) ==
LOC: WOUND 02:42
DX: L89.323 Pressure ulcer of left buttock, stage 3 (principal); Z99.3 Dependence on wheelchair
CPT/HCPCS: A9270; G0463

== ENCOUNTER 2022-05-03 00:23 | Day surgery (SDC) | payer OTHER | END 2022-05-03 22:46 | disposition home or self-care (01) | LOC: WOUND 00:23 | DX: L89.152 Pressure ulcer of sacral region, stage 2 (principal); L89.323 Pressure ulcer of left buttock, stage 3; Z99.3 Dependence on wheelchair | CPT/HCPCS: A9270; G0463 ==

== ENCOUNTER 2022-05-10 02:59 | Day surgery (SDC) | payer OTHER | END 2022-05-10 22:55 | disposition home or self-care (01) | LOC: WOUND 02:59 | DX: L89.323 Pressure ulcer of left buttock, stage 3 (principal); L89.152 Pressure ulcer of sacral region, stage 2; S81.809D Unspecified open wound, unspecified lower leg, subsequent encounter; S91.309D Unspecified open wound, unspecified foot, subsequent encounter; Z99.3 Dependence on wheelchair | CPT/HCPCS: A9270; G0463 ==

== ENCOUNTER 2022-05-31 01:19 | Day surgery (SDC) | payer OTHER | END 2022-05-31 23:33 | disposition home or self-care (01) | DX: L89.324 Pressure ulcer of left buttock, stage 4 (principal); L97.822 Non-pressure chronic ulcer of other part of left lower leg with fat layer exposed; I87.2 Venous insufficiency (chronic) (peripheral); L97.522 Non-pressure chronic ulcer of other part of left foot with fat layer exposed ==

== ENCOUNTER → 2022-06-02 | Outpatient (CLI) | payer OTHER ==
[2022-06-02 19:31] LABS: BASOPHILS ABSOLUTE AUTO 0.09 K/mm3 (0.00-0.23); BASOPHILS PERCENT AUTO 1 % (0-2); EOSINOPHILS ABSOLUTE AUTO 0.16 K/mm3 (0.00-0.68); EOSINOPHILS PERCENT AUTO 2 % (0-6); Hematocrit 34.7 % (37.0-53.0); Hemoglobin 10.5 g/dL (13.5-17.5); IMMATURE GRAN ABSOLUTE AUTO 0.03 K/mm3 (0.00-0.10); IMMATURE GRAN PERCENT AUTO 0 % (0-1); LYMPHOCYTES ABSOLUTE AUTO 1.38 K/mm3 (0.84-5.20); LYMPHOCYTES PERCENT AUTO 17 % (21-46); MONOCYTES PERCENT AUTO 11 % (4-13); Mean Corpuscular HGB 23.8 pg (26.0-34.0); Mean Corpuscular HGB Conc 30.3 g/dL (31.5-36.5); Mean Corpuscular Volume 79 fL (80-100); Mean Platelet Volume 10.9 fL (9.1-12.4); NEUTROPHILS ABSOLUTE AUTO 5.54 K/mm3 (1.96-9.15); NEUTROPHILS PERCENT AUTO 68 % (41-73); Platelet Count 251 K/mm3 (150-400); RDW Coefficient Variation 20.1 % (11.7-14.2); RDW Standard Deviation 56.8 fL (35.1-46.3); Red Blood Cell Count 4.42 M/mm3 (4.30-5.90)
[2022-06-02 19:45] LABS: Albumin, Blood 3.3 g/dL (3.4-5.0); Albumin/Globulin Ratio 0.8 (0.8-1.8); Bilirubin, Total 0.6 mg/dL (0.1-1.0); Bun/Creatinine Ratio 48.6 (12.0-20.0); Calcium, Blood 9.2 mg/dL (8.5-10.1); Creatinine, Blood 1.38 mg/dL (0.60-1.20); Globulin, Blood 4.4 g/dL (2.2-4.0); Potassium, Blood 4.1 mmol/L (3.5-5.5); Total Protein, Blood 7.7 g/dL (6.4-8.2)
== END | disposition home or self-care (01) ==
LOC: LAB SHORT 17:00
PROVIDERS: Student in an Organized Health Care Education/Training Program
DX: I50.9 Heart failure, unspecified (principal); L97.909 Non-pressure chronic ulcer of unspecified part of unspecified lower leg with unspecified severity
CPT/HCPCS: 80053; 85025

== ENCOUNTER 2022-06-18 01:08 | Day surgery (SDC) | payer OTHER | END 2022-06-18 23:10 | disposition home or self-care (01) | LOC: WOUND 01:08 | DX: E11.621 Type 2 diabetes mellitus with foot ulcer (principal); L97.522 Non-pressure chronic ulcer of other part of left foot with fat layer exposed; L97.525 Non-pressure chronic ulcer of other part of left foot with muscle involvement without evidence of necrosis; L89.324 Pressure ulcer of left buttock, stage 4; E11.51 Type 2 diabetes mellitus with diabetic peripheral angiopathy without gangrene | CPT/HCPCS: A9270; G0463 ==

== ENCOUNTER 2022-06-25 01:30 | Day surgery (SDC) | payer OTHER ==
[2022-06-29] MEDS ORDERED: CEPH500 PO (17:52)
== END 2022-06-26 23:32 | disposition home or self-care (01) ==
LOC: WOUND 01:30
DX: E11.622 Type 2 diabetes mellitus with other skin ulcer (principal); L97.822 Non-pressure chronic ulcer of other part of left lower leg with fat layer exposed; L89.324 Pressure ulcer of left buttock, stage 4; E11.621 Type 2 diabetes mellitus with foot ulcer; L97.512 Non-pressure chronic ulcer of other part of right foot with fat layer exposed; L97.522 Non-pressure chronic ulcer of other part of left foot with fat layer exposed; E11.51 Type 2 diabetes mellitus with diabetic peripheral angiopathy without gangrene
CPT/HCPCS: A9270

== ENCOUNTER 2022-07-02 15:54 | Emergency (ER) | payer OTHER ==
[~2022-07-02] VITALS: Ht 182.9 cm; Wt 68.0 kg
[~2022-07-02 15:54] MED LIST changes: +CEPH500 PO
[2022-07-02 16:37] LABS: BASOPHILS ABSOLUTE AUTO 0.04 K/mm3 (0.00-0.23); BASOPHILS PERCENT AUTO 0 % (0-2); EOSINOPHILS ABSOLUTE AUTO 0.04 K/mm3 (0.00-0.68); EOSINOPHILS PERCENT AUTO 0 % (0-6); Hemoglobin 10.1 g/dL (13.5-17.5); IMMATURE GRAN ABSOLUTE AUTO 0.07 K/mm3 (0.00-0.10); IMMATURE GRAN PERCENT AUTO 1 % (0-1); LYMPHOCYTES ABSOLUTE AUTO 1.01 K/mm3 (0.84-5.20); LYMPHOCYTES PERCENT AUTO 7 % (21-46); MONOCYTES PERCENT AUTO 8 % (4-13); Mean Corpuscular HGB 24.5 pg (26.0-34.0); Mean Corpuscular HGB Conc 31.6 g/dL (31.5-36.5); Mean Corpuscular Volume 78 fL (80-100); Mean Platelet Volume 9.6 fL (9.1-12.4); NEUTROPHILS ABSOLUTE AUTO 11.59 K/mm3 (1.96-9.15); NEUTROPHILS PERCENT AUTO 84 % (41-73); Platelet Count 288 K/mm3 (150-400); RDW Coefficient Variation 19.2 % (11.7-14.2); RDW Standard Deviation 54.4 fL (35.1-46.3); Red Blood Cell Count 4.12 M/mm3 (4.30-5.90); White Blood Cell Count 13.85 K/mm3 (4.00-11.30)
[2022-07-02 17:00] LABS: Albumin, Blood 2.8 g/dL (3.4-5.0); Albumin/Globulin Ratio 0.7 (0.8-1.8); Bilirubin, Total 0.9 mg/dL (0.1-1.0); Bun/Creatinine Ratio 34.6 (12.0-20.0); Calcium, Blood 8.7 mg/dL (8.5-10.1); Creatinine, Blood 1.36 mg/dL (0.60-1.20); Globulin, Blood 4.2 g/dL (2.2-4.0); Potassium, Blood 4.3 mmol/L (3.5-5.5)
[2022-07-02 19:17] LABS: Source, Urine Voided
[2022-07-02 19:32] LABS: Appearance, Urine Clear (Clear); Bilirubin, Urine Neg (Neg); Blood, Urine Neg (Neg); Color, Urine Yellow (P-Yellow); Glucose Qualitative, Urine Neg (Neg); Ketones, Urine Neg (Neg); Leukocyte Esterase, Urine 1+ (Neg); Nitrite, Urine Neg (Neg); Protein, Urine Neg (Neg); Specific Gravity, Urine 1.015 (1.003-1.022); Urobilinogen, Urine NORM (Normal)
[2022-07-02] MEDS ORDERED: FLUTICASONE-SA1 EAC8 INH ×2 (19:42→20:14)
[2022-07-02] MEDS ORDERED: PANT20 PO ×2 (19:43→20:15)
[2022-07-02] MEDS ORDERED: BUME1 PO ×2 (19:45→20:15)
[2022-07-02 20:11] LABS: Bacteria Few /hpf; Red Blood Cells, Urine Not Seen /hpf (0-2); Squamous Epithelial Cells Few /hpf (Few); White Blood Cells, Urine 25-50 /hpf (0-5)
[2022-07-02] MEDS ORDERED: CEPH500 PO ×2 (20:13→21:41)
[2022-07-02] MEDS ORDERED: OXYCODONE-ACET1 EAC2 PO (20:14)
[2022-07-02] MEDS ORDERED: GABAPENTIN600 MG PO (20:15)
[2022-07-08] MEDS ORDERED: ATOR10 (11:48)
[2022-07-08] MEDS ORDERED: METO25ER (11:49)
== END 2022-07-02 23:00 | disposition home or self-care (01) ==
LOC: ER 15:54
PROVIDERS: Emergency Medicine
DX: N39.0 Urinary tract infection, site not specified (principal); E86.0 Dehydration; E11.9 Type 2 diabetes mellitus without complications; I50.9 Heart failure, unspecified; J44.9 Chronic obstructive pulmonary disease, unspecified; Z79.899 Other long term (current) drug therapy
CPT/HCPCS: 71045; 80053; 81001; 83690; 85025; 87086; 93005; 93010; J0696; J7030

== ENCOUNTER 2022-07-08 11:01 | Inpatient (IN) | payer OTHER ==
[~2022-07-08] VITALS: Ht 193 cm; Wt 70.0 kg
[~2022-07-08 11:01] MED LIST changes: +BUME1 PO; +FLUTICASONE-SA1 EAC8 INH; +GABAPENTIN600 MG PO
[2022-07-08 11:36] LABS: BASOPHILS ABSOLUTE AUTO 0.07 K/mm3 (0.00-0.23); BASOPHILS PERCENT AUTO 0 % (0-2); EOSINOPHILS ABSOLUTE AUTO 0.08 K/mm3 (0.00-0.68); EOSINOPHILS PERCENT AUTO 0 % (0-6); Hematocrit 31.4 % (37.0-53.0); Hemoglobin 9.7 g/dL (13.5-17.5); IMMATURE GRAN ABSOLUTE AUTO 0.13 K/mm3 (0.00-0.10); IMMATURE GRAN PERCENT AUTO 1 % (0-1); LYMPHOCYTES PERCENT AUTO 4 % (21-46); MONOCYTES ABSOLUTE AUTO 1.31 K/mm3 (0.16-1.47); MONOCYTES PERCENT AUTO 6 % (4-13); Mean Corpuscular HGB 24.3 pg (26.0-34.0); Mean Corpuscular HGB Conc 30.9 g/dL (31.5-36.5); Mean Corpuscular Volume 79 fL (80-100); Mean Platelet Volume 9.9 fL (9.1-12.4); NEUTROPHILS ABSOLUTE AUTO 18.84 K/mm3 (1.96-9.15); NEUTROPHILS PERCENT AUTO 88 % (41-73); Platelet Count 307 K/mm3 (150-400); RDW Coefficient Variation 19.6 % (11.7-14.2); RDW Standard Deviation 55.9 fL (35.1-46.3); Red Blood Cell Count 3.99 M/mm3 (4.30-5.90); White Blood Cell Count 21.33 K/mm3 (4.00-11.30)
[2022-07-08] MEDS ORDERED: GLIP5 (11:48)
[2022-07-08] MEDS ORDERED: CITALOPRAM HBR10 MG (11:48)
[2022-07-08] MEDS ORDERED: ATOR10 PO (11:48)
[2022-07-08] MEDS ORDERED: FINA5 (11:48)
[2022-07-08] MEDS ORDERED: METO25ER PO (11:49)
[2022-07-08 11:57] LABS: Albumin, Blood 2.6 g/dL (3.4-5.0); Albumin/Globulin Ratio 0.6 (0.8-1.8); Bilirubin, Total 0.7 mg/dL (0.1-1.0); Bun/Creatinine Ratio 31.1 (12.0-20.0); Calcium, Blood 8.6 mg/dL (8.5-10.1); Creatinine, Blood 1.35 mg/dL (0.60-1.20); Globulin, Blood 4.3 g/dL (2.2-4.0); Potassium, Blood 4.4 mmol/L (3.5-5.5); Total Protein, Blood 6.9 g/dL (6.4-8.2)
[2022-07-08 12:35] LABS: Source, Urine Straight Cath
[2022-07-08 12:46] LABS: Appearance, Urine Clear (Clear); Bilirubin, Urine Neg (Neg); Blood, Urine 2+ (Neg); Color, Urine Yellow (P-Yellow); Glucose Qualitative, Urine Neg (Neg); Ketones, Urine Neg (Neg); Leukocyte Esterase, Urine 2+ (Neg); Nitrite, Urine Neg (Neg); Protein, Urine Neg (Neg); Urobilinogen, Urine NORM (Normal)
[2022-07-08 13:09] LABS: Bacteria Rare /hpf; Squamous Epithelial Cells Few /hpf (Few)
[2022-07-08 13:10] LABS: Hyaline Casts 0-2 /lpf (0-2)
--- NOTE | 2022-07-08 18:47 | NUR ---
Patient admitted from ED for sepsis, patients voice is mumbled, slept through admit intake. 2nd RN for skin check. Patient had scabs/skin tears t/o body. Large deep wound noted on left ischial site. Wound photos documented in hard chart. Small amount of yellow exudate, strong foul odor noted. Cleaned & packed and placed new dressing. IV vancomycin infusing. Patient has right BKA, repositioned with pillows to float buttocks. Patient resting in bed, denies pain. Tele in place. Will continue plan of care, awiating discharge planning.
[2022-07-09 05:00] LABS: BASOPHILS ABSOLUTE AUTO 0.05 K/mm3 (0.00-0.23); BASOPHILS PERCENT AUTO 0 % (0-2); EOSINOPHILS ABSOLUTE AUTO 0.04 K/mm3 (0.00-0.68); EOSINOPHILS PERCENT AUTO 0 % (0-6); Hematocrit 29.3 % (37.0-53.0); Hemoglobin 9.2 g/dL (13.5-17.5); IMMATURE GRAN PERCENT AUTO 1 % (0-1); LYMPHOCYTES ABSOLUTE AUTO 0.95 K/mm3 (0.84-5.20); LYMPHOCYTES PERCENT AUTO 6 % (21-46); MONOCYTES ABSOLUTE AUTO 0.86 K/mm3 (0.16-1.47); MONOCYTES PERCENT AUTO 6 % (4-13); Mean Corpuscular HGB 24.4 pg (26.0-34.0); Mean Corpuscular HGB Conc 31.4 g/dL (31.5-36.5); Mean Corpuscular Volume 78 fL (80-100); Mean Platelet Volume 10.3 fL (9.1-12.4); NEUTROPHILS ABSOLUTE AUTO 13.04 K/mm3 (1.96-9.15); NEUTROPHILS PERCENT AUTO 87 % (41-73); Platelet Count 274 K/mm3 (150-400); RDW Coefficient Variation 19.4 % (11.7-14.2); RDW Standard Deviation 54.7 fL (35.1-46.3); Red Blood Cell Count 3.77 M/mm3 (4.30-5.90); White Blood Cell Count 15.04 K/mm3 (4.00-11.30)
[2022-07-09 05:38] LABS: Magnesium, Blood 2.4 mg/dL (1.6-2.4); Percent Saturation 8.6 % (20.0-50.0)
[2022-07-09 05:39] LABS: Bun/Creatinine Ratio 29.6 (12.0-20.0); Calcium, Blood 8.4 mg/dL (8.5-10.1); Creatinine, Blood 1.25 mg/dL (0.60-1.20); Phosphorus, Blood 3.2 mg/dL (2.5-4.9); Potassium, Blood 3.8 mmol/L (3.5-5.5)
--- NOTE | 2022-07-09 05:48 | NUR ---
SCALE MECHANIC SUMMARY PT A/OX4. PT REPORTING 9/10 PAIN IN BACK/COCCYX. PT STATES HE TAKES PERCOSET 10/325 QID AT HOME; CALL TO [facility] SPECIAL[facility]/DR MILNER--NEW ORDER F/PERCOSET 10/325 Q4HRS PRN AND DC 0900 SCHEDULED DOSE. PT ON BEDREST T/O THE NIGHT; USING THE URINAL IN BED; HAVING SOME DIFFICULTY SPILLING. DID COMPLETE BED CHANGE AND CHANGED DRESSING ON COCCYX WOUND; TOOK DEEP TISSUE CULTURE AND SENT TO LAB. WOUND IS DRAINING AND PURULENT/ODOROUS. 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 FORESKIN DIFFICULT TO RETRACT AND RED. PT SAYS ENLARGED MORE THAN NORMAL AND HAS BEEN UNABLE TO RETRACT SKIN--PT STATES DR IS AWARE WHEN QUESTIONED; COLORATION/CIRCULATION APPEARS NORMAL. CALLED SURGICAL CONSULT TO DR ZULETA ANSWERING SERVICE F/LEFT ISCHIAL DECUB; NO ORDER FOR NPO; PLACED PT ON NPO AFTER MIDNIGHT PRECAUTION. WILL ADVISE DAY SHIFT NURSE. PT ABLE TO MAKE NEEDS KNOWN; CALL LIGHT ACCESSIBLE. BED LOCKED/LOW.
--- NOTE | 2022-07-09 12:17 | NUR ---
PT BROUGHT FROM FLOOR TO DAY SURGERY.
--- NOTE | 2022-07-09 17:26 | NUR ---
DAYSHIFT SUMMARY Surgical consult this morning, Dr. Ibrahim assessed pressure ulcer, plan is to do surgical debridement. Patient went to surgery at 1200 & returned to medical floor at 1530. Patient doing well sleeping comfortably in bed. Vitals stable, patient denies pain at this time. Tele reports several runs of PVCs today. Orders to change dressing daily, apply calcium alginate rope to left ishium wound. Will continue plan of care, awaiting discharge planning.
--- NOTE | 2022-07-10 00:37 | NUR ---
NOTIFIED OF PTS 6 BEATS OF V-TACH, PT IS ASYMPTOMATIC. NO FURTHER ORDERS AT THIS TIME.
--- NOTE | 2022-07-10 04:31 | NUR ---
SHIFT SUMMARY; NO ACUTE CHANGES OVERNIGHT. THE PT HAD 6 BEATS OF V-TACH LAST NIGHT BUT WAS ASYMPTOMATIC. NOTIFIED THE HOSPITALIST, NO NEW ORDERS AT THIS TIME. THE PT HAD A BM LAST NIGHT THAT ENDED UP SOILING HIS DRESSING OVER THE L BUTTOCK ULCER. SERVICE STATION CASHIER BHARATI AND I DID A DRESSING CHANGE ON THE PTS WOUND PER THE ORDER. THE PT TOLERATED THE DRESSING CHANGE WELL. TELE IN PLACE, A-FIB IN THE 100'S. THE PT HAS BEEN RESTING IN BED T/O THE NIGHT. CURRENTLY THE PT IS RESTING IN BED WITH THE BED IN THE LOWEST POSITION AND THE CALL LIGHT AT BEDSIDE.
[2022-07-10 04:53] LABS: BASOPHILS ABSOLUTE AUTO 0.05 K/mm3 (0.00-0.23); BASOPHILS PERCENT AUTO 0 % (0-2); EOSINOPHILS ABSOLUTE AUTO 0.07 K/mm3 (0.00-0.68); EOSINOPHILS PERCENT AUTO 1 % (0-6); Hemoglobin 9.1 g/dL (13.5-17.5); IMMATURE GRAN ABSOLUTE AUTO 0.08 K/mm3 (0.00-0.10); IMMATURE GRAN PERCENT AUTO 1 % (0-1); LYMPHOCYTES ABSOLUTE AUTO 1.15 K/mm3 (0.84-5.20); LYMPHOCYTES PERCENT AUTO 10 % (21-46); MONOCYTES ABSOLUTE AUTO 0.72 K/mm3 (0.16-1.47); MONOCYTES PERCENT AUTO 6 % (4-13); Mean Corpuscular HGB 24.5 pg (26.0-34.0); Mean Corpuscular HGB Conc 31.4 g/dL (31.5-36.5); Mean Corpuscular Volume 78 fL (80-100); Mean Platelet Volume 9.5 fL (9.1-12.4); NEUTROPHILS ABSOLUTE AUTO 9.85 K/mm3 (1.96-9.15); NEUTROPHILS PERCENT AUTO 83 % (41-73); Platelet Count 292 K/mm3 (150-400); RDW Coefficient Variation 19.5 % (11.7-14.2); RDW Standard Deviation 55.5 fL (35.1-46.3); Red Blood Cell Count 3.72 M/mm3 (4.30-5.90); White Blood Cell Count 11.92 K/mm3 (4.00-11.30)
[2022-07-10 05:26] LABS: Bun/Creatinine Ratio 29.6 (12.0-20.0); Calcium, Blood 8.3 mg/dL (8.5-10.1); Creatinine, Blood 1.15 mg/dL (0.60-1.20); Potassium, Blood 3.8 mmol/L (3.5-5.5)
--- NOTE | 2022-07-10 08:21 | NUR ---
pt laying in bed awake a/ox3, occ forgetful pleasant and cooperative with care, follows commands well, a bit sleepy this am, reports back pain that is his chronic low back pain, does not complain of wound pain, medicated with tylenol until oxy is due, lungs are clear a bit dim in bases dina right base, on r/a, resp even and unlabored, no cough noted, hrirr, tele in place running afib per monitor, see strip, pp not palpated, on left, has a rbka, piv to lfa site is clear and patent, infusing ns at 75mls/hr, btx4, abd flat soft nontender, voids via urinal and is incont at times, briefs in place, skin has wound to buttocks that had an I&D yesterday, mepilex in place, moves upper ext well, feeds himself, takes po meds without diff, erna, call light in reach.
--- NOTE | 2022-07-10 19:13 | NUR ---
pt resting most of the day, iv began leaking, placed new 20 gauge to rfa, lfa removed intact, medicated for pain, turned, dressing changed on bottom, call light in reach.
--- NOTE | 2022-07-11 04:28 | NUR ---
SHIFT SUMMARY; NO ACUTE CHANGES OVERNIGHT. THE PT RESTED IN BED T/O THE NIGHT. THE PT REQUESTED PRN OXYCODONE LAST NIGHT. PT DENIES ANY CHEST PAIN OR SOB THIS SHIFT. TELE IS IN PLACE, THE PT HAS BEEN RUNNING A-FIB IN THE /'S. CURRENTLY THE PT IS SLEEPING IN BED WITH THE BED IN THE LOWEST POSITION AND THE CALL LIGHT IN THE BED WITH HIM.
[2022-07-11 05:09] LABS: BASOPHILS ABSOLUTE AUTO 0.05 K/mm3 (0.00-0.23); BASOPHILS PERCENT AUTO 1 % (0-2); EOSINOPHILS ABSOLUTE AUTO 0.33 K/mm3 (0.00-0.68); EOSINOPHILS PERCENT AUTO 3 % (0-6); Hematocrit 31.5 % (37.0-53.0); Hemoglobin 9.7 g/dL (13.5-17.5); IMMATURE GRAN ABSOLUTE AUTO 0.05 K/mm3 (0.00-0.10); IMMATURE GRAN PERCENT AUTO 1 % (0-1); LYMPHOCYTES ABSOLUTE AUTO 1.22 K/mm3 (0.84-5.20); LYMPHOCYTES PERCENT AUTO 12 % (21-46); MONOCYTES ABSOLUTE AUTO 0.81 K/mm3 (0.16-1.47); MONOCYTES PERCENT AUTO 8 % (4-13); Mean Corpuscular HGB 24.3 pg (26.0-34.0); Mean Corpuscular HGB Conc 30.8 g/dL (31.5-36.5); Mean Corpuscular Volume 79 fL (80-100); Mean Platelet Volume 9.9 fL (9.1-12.4); NEUTROPHILS ABSOLUTE AUTO 7.56 K/mm3 (1.96-9.15); NEUTROPHILS PERCENT AUTO 75 % (41-73); Platelet Count 279 K/mm3 (150-400); RDW Coefficient Variation 19.6 % (11.7-14.2); RDW Standard Deviation 55.8 fL (35.1-46.3); Red Blood Cell Count 3.99 M/mm3 (4.30-5.90); White Blood Cell Count 10.02 K/mm3 (4.00-11.30)
[2022-07-11 05:40] LABS: Bun/Creatinine Ratio 36.5 (12.0-20.0); Calcium, Blood 8.3 mg/dL (8.5-10.1); Creatinine, Blood 0.96 mg/dL (0.60-1.20)
--- NOTE | 2022-07-11 07:42 | NUR ---
pt laying in bed watching tv, a/ox3, forgetful at times, states he didn't sleep well, lungs are clear in upper nicolas, dim in bases, resp even and unlabored, no cough noted, on r/a, hrirr, tele in place running afib per monitor, see strip, no edeam noted, ppp unable to palpate on left foot, right bka, uses urinal to void, incont of stool, briefs in place, skin has large open wound to coccyx, and scabs scattered on low ext, able to help turn, otherwise total care, pain med given this am, and turned on side, call light in reach.
[2022-07-11 17:09] LABS: Vancomycin, Trough 12.6 ug/mL (5.0-10.0)
--- NOTE | 2022-07-11 18:05 | NUR ---
Pt had an uneventful day, has been turned, had a bm this am, sleeps at times, no acute changes this shift, call light in reach.
--- NOTE | 2022-07-12 04:19 | NUR ---
SHIFT SUMMARY; NO ACUTE CHANGES OVERNIGHT. PT SLEPT MOST OF THE SHIFT. PT REQUESTED PRN PAIN MEDICATIONS T/O THE NIGHT. CURRENTLY THE PT IS RESTING IN BED WITH THE BED IN THE LOWEST POSITION AND THE CALL LIGHT AT BEDSIDE. TELE IN PLACE, A-FIB 100'S.
[2022-07-12 04:42] LABS: BASOPHILS ABSOLUTE AUTO 0.12 K/mm3 (0.00-0.23); BASOPHILS PERCENT AUTO 1 % (0-2); EOSINOPHILS ABSOLUTE AUTO 0.28 K/mm3 (0.00-0.68); EOSINOPHILS PERCENT AUTO 3 % (0-6); Hematocrit 34.8 % (37.0-53.0); Hemoglobin 10.6 g/dL (13.5-17.5); Mean Corpuscular HGB 24.3 pg (26.0-34.0); Mean Corpuscular HGB Conc 30.5 g/dL (31.5-36.5); Mean Corpuscular Volume 80 fL (80-100); Mean Platelet Volume 9.8 fL (9.1-12.4); Platelet Count 228 K/mm3 (150-400); RDW Coefficient Variation 19.8 % (11.7-14.2); RDW Standard Deviation 56.9 fL (35.1-46.3); Red Blood Cell Count 4.36 M/mm3 (4.30-5.90); White Blood Cell Count 9.51 K/mm3 (4.00-11.30)
[2022-07-12 04:45] LABS: IMMATURE GRAN ABSOLUTE AUTO 0.21 K/mm3 (0.00-0.10); IMMATURE GRAN PERCENT AUTO 2 % (0-1); LYMPHOCYTES ABSOLUTE AUTO 1.48 K/mm3 (0.84-5.20); LYMPHOCYTES PERCENT AUTO 16 % (21-46); MONOCYTES ABSOLUTE AUTO 0.66 K/mm3 (0.16-1.47); MONOCYTES PERCENT AUTO 7 % (4-13); NEUTROPHILS ABSOLUTE AUTO 6.76 K/mm3 (1.96-9.15); NEUTROPHILS PERCENT AUTO 71 % (41-73)
[2022-07-12 06:27] LABS: Bun/Creatinine Ratio 31.8 (12.0-20.0); Calcium, Blood 8.2 mg/dL (8.5-10.1); Creatinine, Blood 0.85 mg/dL (0.60-1.20); Potassium, Blood 4.3 mmol/L (3.5-5.5)
--- NOTE | 2022-07-12 18:01 | NUR ---
PATIENT ON BED REST WITH MULTIPLE ABX RUNNING THROUGH OUT THE DAY. TOLERATING WELL. COGNITION APPEARS CLEAR. DENIES FURTHER HALLUCINATION. PRN PAIN MEDICATION GIVEN X 2 THIS SHIFT. PATIENT IS AFIB ON TELE, DECK LID FITTER REPORTED MANY PVC WELL. PATIENT IS EATING MEALS. WOUND CARE DONE ON LOWER EXTREMITY-DRESSING CHANGE. COCCYX DRESSING CLEAN DRY INTACT CHANGED JUST BEFORE SHIFT CHANGE THIS AM.
--- NOTE | 2022-07-13 04:38 | NUR ---
SHIFT SUMMARY: Pt A/Ox4 and call light appropriate. No new complaints this shift. He did have pain, recieved PRN pain medications [id number]. He was repostioned throughout the night as tolerated. He remained contienent this shift. Denied nauea, SOB and dizziness.
--- NOTE | 2022-07-13 10:18 | NUR ---
PATEINT REPORTS CHEST DISCOMFORT. HE DID EXPRESS THIS EARLIER WHEN DR. GOMEZ WAS PRESENT. HE STATES IT IS LIKE INDIGESTION, BUT ALSO CALLS IT A SHARP PAIN IN RIGHT SIDE OF CHEST. HEART SOUNDS ASSESSED. SOUNDS IRREGULAR-AFIB. RN DIGESTIVE WAS CALLED AND REPORTS HIS NORMAL AFIB WITH ABOUT 8 PVC PER MINUTE WHICH IS A LITTLE MORE THAN HIS USUAL 5-6 PVC PER MINUTE. PATIENT IS RESTING IN BED. IV MERREM JUST FINISHED UP. PAIN MEDICATION GIVEN CLOSE TO 8AM. ALL OTHER MORNING MEDS HAVE BEEN GIVEN. DENIES SOB.
--- NOTE | 2022-07-13 18:01 | NUR ---
PATIENT REPORTED FEELING WORSE THIS AM, THAN HE HAD YESTERDAY. HE C/O CHEST PAIN IN THE RIGHT SIDE OF HIS CHEST WHICH PROVIDER THINKS IS MUSCULOSKELETAL PAIN. PATIENT WILL BE GOING TO [facility]TOMORROW. THE DISCHARGE WAS SCHEDULED TO HAPPEN TODAY, BUT WAS AUTHORIZED FOR TOMORROW. PATIENT IS STILL RECEIVING IV ABX BACK TO BACK, AND IS TAKING A PAIN PILL EVERY FOUR HOURS. THE PAIN PILL IS EFFECTIVE BUT TAKES A LONG TIME TO START WORKING. HE SLEEPS IN BETWEEN. DRESSING CHANGE ON BUTTOCKS WAS DONE TODAY. AREA IS DEEP BUT SURROUNDING TISSUE IS GOOD COLOR, NOT TO RED AND PATIENT DENIES PAIN DURING CHANGE. OTHER MEPILEX ON LE ARE DRY AND INTACT. COGNITION IS WNL AND PATIENT HAS NO HALLUCINATION.
[2022-07-14 01:14] LABS: Influenza A, PCR NEGATIVE (NEGATIVE); Influenza B, PCR NEGATIVE (NEGATIVE); Resp Syncytial Virus, PCR NEGATIVE (NEGATIVE); SARS-Cov-2 (COVID-19) PCR, MMC NEGATIVE (NEGATIVE)
--- NOTE | 2022-07-14 04:14 | NUR ---
SHIFT SUMMARY: PT A/OX4 AND CALL LIGHT APPROPRIATE. OVERNIGHT PT HAD C/O PAIN IN HIS LEGS, AND COCCYX. PRN PAIN MEDICATIONS GIVEN Q4. HE DENIED NAUSEA, SOB, DIZZINESS. ABX GIVEN PER EMAR. POSSIBLE D/C SET FOR TODAY FOR A REHAB FACILITY.
[2022-07-14] MEDS ORDERED: VISBIOME 112.51 EACH PO (08:17)
[2022-07-14] MEDS ORDERED: SULFAMETHOXAZO1 EAC1 PO (08:18)
[2022-07-14] MEDS ORDERED: METR250 PO (08:18)
== END 2022-07-14 14:50 | DRG 853 ==
LOC: ER 11:01 → MEDS 16:24 → ENPENDDIS 07-13 16:25 → MEDS 07-14 14:50
PROVIDERS: Emergency Medicine; Family Medicine; Student in an Organized Health Care Education/Training Program; ADMIT Internal Medicine
PROC: 3E03329 Introduction of Other Anti-infective into Peripheral Vein, Percutaneous Approach (ICD-10-PCS; principal; 2022-07-08)
PROC: 0QB30ZZ Excision of Left Pelvic Bone, Open Approach (ICD-10-PCS; 2022-07-09)
DX: A41.02 Sepsis due to Methicillin resistant Staphylococcus aureus (principal); J18.9 Pneumonia, unspecified organism; L89.44 Pressure ulcer of contiguous site of back, buttock and hip, stage 4; I50.22 Chronic systolic (congestive) heart failure; L03.116 Cellulitis of left lower limb; E44.0 Moderate protein-calorie malnutrition; J44.0 Chronic obstructive pulmonary disease with (acute) lower respiratory infection; Z66 Do not resuscitate; Z51.5 Encounter for palliative care; Z20.822 Contact with and (suspected) exposure to COVID-19; A41.51 Sepsis due to Escherichia coli [E. coli]; E11.40 Type 2 diabetes mellitus with diabetic neuropathy, unspecified; I48.91 Unspecified atrial fibrillation; D63.1 Anemia in chronic kidney disease; I95.9 Hypotension, unspecified; R82.71 Bacteriuria; N18.31 Chronic kidney disease, stage 3a; E11.22 Type 2 diabetes mellitus with diabetic chronic kidney disease; N40.0 Benign prostatic hyperplasia without lower urinary tract symptoms; K21.9 Gastro-esophageal reflux disease without esophagitis; R62.7 Adult failure to thrive; B96.5 Pseudomonas (aeruginosa) (mallei) (pseudomallei) as the cause of diseases classified elsewhere; F17.210 Nicotine dependence, cigarettes, uncomplicated; Z68.20 Body mass index [BMI] 20.0-20.9, adult; Z89.511 Acquired absence of right leg below knee; Z87.440 Personal history of urinary (tract) infections; Z79.84 Long term (current) use of oral hypoglycemic drugs; Z79.899 Other long term (current) drug therapy
CPT/HCPCS: 0241U; 36415; 71045; 74177; 80048; 80053; 80202; 81001; 82728; 82947; 83540; 83550; 83605; 83735; 84100; 85025; 86140; 87040; 87070; 87075; 87076; 87077; 87086; 87185; 87186; 87205; 93005; 93010; 94760; 96365-59; 97110; 97162; 97166; 97530; 97535; 99285-25; A9270; J0692; J1650; J2185; J2543; J3010; J3370; J7030; J7050; J7120; Q9967